=== PATIENT | female | born 1995 | race Caucasian/White ===

== ENCOUNTER 2016-09-21 15:26 | Emergency (ER) | payer OTHER ==
[~2016-09-21] VITALS: Ht 152.4 cm; Wt 68.0 kg
[~2016-09-21 15:26] MED LIST: PEPTO BISMUL
[2016-09-21 15:44] VITALS: BP 141/89
--- NOTE | 2016-09-21 15:58 | NUR ---
Pt taken to bed 6.
--- NOTE | 2016-09-21 16:00 | NUR ---
Dr. Appiah evaluating patient at bedside.
[2016-09-21] MEDS ORDERED: DEXAMETHASONE 4 MG/ML VIAL PO ONE (16:05)
[2016-09-21 16:41] VITALS: BP 141/89
--- NOTE | 2016-09-21 16:42 | NUR ---
Patient discharged with v/s stable. Written and verbal after care instructions given and explained. Patient alert, oriented and verbalized understanding of instructions. Ambulatory with steady gait. All questions addressed prior to discharge. ID band removed. Patient advised to follow up with PMD. Rx of COUGH SYRUP given. Patient educated on indication of medication including possible reaction and side effects. Opportunity to ask questions provided and answered.
--- NOTE | 2016-09-21 16:54 | NUR ---
Chart checked and completed. The patient's care was reviewed and supervised by Ari Ortiz RN.
== END 2016-09-21 16:42 | disposition home or self-care (01) ==
LOC: MED 15:26
DX: J06.9 Acute upper respiratory infection, unspecified (principal); Z88.5 Allergy status to narcotic agent
CPT/HCPCS: 81002; 81025; 99282; J1100